=== PATIENT | male | born 1980 | race Caucasian/White ===

== ENCOUNTER 2018-06-02 17:28 | Inpatient (IN) | payer OTHER ==
--- NOTE | 2018-06-02 18:00 | PDOC ---
History of Present Illness - General Chief Complaint: Pain, Acute Stated Complaint: ABD PAIN Time Seen by Provider: 06/02/18 17:51 - History of Present Illness Initial Comments: 06/02/18 18:53 Perfecto Gore is an otherwise healthy 37yo man with a history of kidney stones who presents with acute onset of severe RLQ, right flank, and right back pain that started about 2-3 hours ago. He states that the pain is always present but comes in waves, and he describes it as a sharp or burning pain. He has had associated nausea and an episode of emesis. Mr Gore has not had any urinary symptoms associated but reports that he has not needed to urinate since the pain started. He cannot remember if the current pain is similar to his previous kidney stone. He took 800mg ibuprofen prior to arrival in the ED without improvement in his pain. Mr Gore reports that he has been healthy recently other than the current episode. ROS is completely negative aside from the current pain and vomiting. Past History - Past Medical History Allergies/Adverse Reactions: Allergies Allergy/AdvReac Type Severity Reaction Status Date / Time No Known Allergies Allergy Verified 06/02/18 17:36 Home Medications: Ambulatory Orders NK [No Known Home Medication] 06/02/18 COPD: No Kidney Stones: Yes - Suicide/Smoking/Psychosocial Hx Smoking History: Never smoked Review of Systems - Review of Systems Comments:: General: No fevers, no chills, no weight or appetite change, no malaise HEENT: No changes in vision, no changes in hearing, no congestion, no sore throat CV: No chest pain, no palpitations, no LE edema Pulm: No SOB, no cough, no wheezing GI: No nausea or vomiting, no change in bowel habits, no melena : No frequency, no urgency, no dysuria Musc: No back pain, no joint swelling, no recent injury Skin: No rash, no lesions, no erythema Endo: No excessive thirst, no heat/cold intolerance Heme: No unusual bruising or bleeding, no swollen glands Neuro: No syncope, no numbness/tingling, no focal weakness Vasc: No claudication Psych: No recent change in mood, no SI or HI *Physical Exam - Vital Signs Last Vital Signs Temp Pulse Resp BP Pulse Ox 66 18 141/84 99 06/02/18 17:33 06/02/18 17:33 06/02/18 17:33 06/02/18 17:33 - Physical Exam Comments: General: Uncomfortable, having difficulty laying still HEENT: PERRL, EOMI, MMM, voice normal, normal neck ROM, no LAD Cards: RRR, no murmur appreciated Pulm: Comfortable on room air, clear to auscultation bilaterally Abd: Soft, TTP on RLQ, R flank, R lateral back. : + Right CVA tenderness Ext: Atraumatic. No LE edema. ROM intact. Strength 5/5 and equal bilaterally Vasc: Extremities WWP. Palpable radial pulse bilaterally Neuro: A&Ox3, CN grossly intact, normal speech, motor/sensory grossly intact and symmetric Psych: Mood appropriate to situation ED Treatment Course - LABORATORY CBC & Chemistry Diagram: 06/02/18 18:36 06/02/18 18:36 Medical Decision Making - Medical Decision Making 06/02/18 18:56 Perfecto Wilson is a 37yo man with one previous episode of kidney stones who presents with acute onset of right sided abdominal, flank and lateral back pain. He is unable to remain still due to the pain and reports that it comes in waves. He has associated nausea and emesis. - Presentation and history are most consistent with a kidney stone - CBC, CMP, lipase, UA, urine culture pending - May obtain imaging depending on lab results - 4mg IV morphine, 4mg IV zofran, 30mg IV toradol for symptoms - Will reassess following administration of medications 06/02/18 19:36 - Labs pending - Pain significantly improved Signed out to Dr Childress. *DC/Admit/Observation/Transfer Diagnosis at time of Disposition: Right sided abdominal pain, Acute right flank pain - Referrals - Patient Instructions - Post Discharge Activity
[2018-06-02] MEDS ORDERED: morphine CARPU-JECT 2 MG/1 ML DISP.SYRIN IVPUSH ONE (18:19)
[2018-06-02] MEDS ORDERED: ONDANSETRON 4 MG/2 ML VIAL IVPUSH ONE (18:19)
[2018-06-02] MEDS ORDERED: SODIUM CHLORIDE 1,000 ML IV STA (18:20)
[2018-06-02] MEDS ORDERED: MORPHINE SULFATE 2 MG/ML VIAL ONE (18:32)
[2018-06-02] MEDS ORDERED: ONDANSETRON 4 MG/2 ML VIAL ONE (18:33)
[2018-06-02] MEDS ORDERED: KETOROLAC TROMETHAMINE 30 MG/1 ML VIAL IVPUSH ONE (18:46)
[2018-06-02 18:51] LABS: BASO % 0.3 % (0-2.0); EOS % 0.6 % (0-4.5); HEMATOCRIT 45.8 % (35.4-49); HEMOGLOBIN 15.8 GM/dL (11.7-16.9); LYMPH % 12.8 % (8-40); MCH 29.8 pg (25.7-33.7); MCHC 34.4 g/dl (32.0-35.9); MEAN CELL VOLUME 86.5 fl (80-96); MEAN PLT VOLUME 9.6 fl (7.5-11.1); MONO % 5.5 % (3.8-10.2); NEUT % 80.8 % (42.8-82.8); PLATELET COUNT 240 K/MM3 (134-434); RDW 12.8 % (11.9-15.9); WHITE BLOOD COUNT 13.1 K/mm3 (4.0-10.0)
[2018-06-02] MEDS ORDERED: KETOROLAC TROMETHAMINE 30 MG/1 ML VIAL ONE (18:55)
[2018-06-02 19:06] LABS: ALBUMIN 4.9 g/dl (3.4-5.0); ANION GAP 10 (8-16); BILIRUBIN,TOTAL 0.8 mg/dL (0.2-1.0); BLOOD UREA NITROGEN 23 mg/dL (7-18); CALCIUM 9.9 mg/dL (8.5-10.1); CHLORIDE 102 mmol/L (98-107); CO2 27 mmol/L (21-32); CREATININE 1.1 mg/dL (0.7-1.3); GLUCOSE,RANDOM 105 mg/dL (74-106); LIPASE 134 U/L (73-393); POTASSIUM 3.8 mmol/L (3.5-5.1); SGOT/AST 17 U/L (15-37); SGPT/ALT 29 U/L (12-78); SODIUM 139 mmol/L (136-145); TOT PROT 8.4 g/dl (6.4-8.2)
[2018-06-02 19:07] LABS: ALK PHOS 67 U/L (45-117)
--- NOTE | 2018-06-02 19:17 | PDOC ---
Attending Attestation - Resident Resident Name: Mayra Holder - ED Attending Attestation I have performed the following: I have examined & evaluated the patient, The case was reviewed & discussed with the resident, I agree w/resident's findings & plan - HPI HPI: 06/02/18 19:16 Pt has a hx of kidney stones. Now writhing with flank and side pain. - Physicial Exam PE: 06/02/18 19:16 Agree with resident exam - Medical Decision Making 06/02/18 19:17 labs; analgesics, imaging and hydration. 06/02/18 21:55 Patient Name: JET OBRIEN THIS IS A PRELIMINARY REPORT FROM IMAGING PHARMACY TECHNICIAN ASSISTANT DATE OF SERVICE: 2018-06-02 19:55:51 IMAGES: 475 EXAM: CT abdomen/pelvis without contrast HISTORY: Flank pain COMPARISON: None. FINDINGS: There is moderate right hydronephrosis. There is no obstructing 6 mm calculus noted in the proximal right ureter. There is associated right perinephric stranding and minimal right perinephric urinoma. 2 additional small nonobstructing left renal calculi are noted. There are no obvious gallstones. There is a moderate amount of stool noted in the colon. There is no evidence of intestinal obstruction. The appendix is normal in size. Urinary bladder is normal in dimension. There are no bladder calculi. Individualized dose optimization techniques were used for this CT. THIS DOCUMENT HAS BEEN ELECTRONICALLY SIGNED Triston Nye MD 06/02/18 22:19 Pt will be admitted for hisobstructing stone. Admit to med surg Hospitalist
--- NOTE | 2018-06-02 19:33 | PDOC ---
*Physical Exam - Vital Signs Last Vital Signs Temp Pulse Resp BP Pulse Ox 66 18 141/84 99 06/02/18 17:33 06/02/18 17:33 06/02/18 17:33 06/02/18 17:33 - Physical Exam Comments: 06/02/18 19:30 GENERAL: Awake, alert, and fully oriented, in no acute distress HEAD: No signs of trauma, normocephalic, atraumatic EYES: PERRLA, EOMI, sclera anicteric, conjunctiva clear ENT: Auricles normal inspection, hearing grossly normal, nares patent, oropharynx clear without exudates. Moist mucosa LUNGS: No distress, speaks full sentences, clear to auscultation bilaterally HEART: Regular rate and rhythm, normal S1 and S2, no murmurs, rubs or gallops, peripheral pulses normal and equal bilaterally. ABDOMEN: Soft, nontender, normoactive bowel sounds. No guarding, no rebound. No masses EXTREMITIES: Normal inspection, Normal range of motion, no edema. No clubbing or cyanosis. NEUROLOGICAL: Cranial nerves II through XII grossly intact. Normal speech, no focal sensorimotor deficits SKIN: Warm, Dry, normal turgor, no rashes or lesions noted. ED Treatment Course - LABORATORY CBC & Chemistry Diagram: 06/02/18 18:36 06/02/18 18:36 - ADDITIONAL ORDERS Additional order review: Laboratory Results 06/02/18 18:36 Sodium 139 Potassium 3.8 Chloride 102 Carbon Dioxide 27 Anion Gap 10 BUN 23 H Creatinine 1.1 Creat Clearance w eGFR > 60 Random Glucose 105 Calcium 9.9 Total Bilirubin 0.8 AST 17 ALT 29 Alkaline Phosphatase 67 Total Protein 8.4 H Albumin 4.9 Lipase 134 06/02/18 18:36 RBC 5.30 MCV 86.5 MCHC 34.4 RDW 12.8 MPV 9.6 Neutrophils % 80.8 Lymphocytes % 12.8 Monocytes % 5.5 Eosinophils % 0.6 Basophils % 0.3 - Medications Given in the ED: ED Medications Discontinued Medications Generic Name Dose Route Start Last Admin Trade Name Freq PRN Reason Stop Dose Admin Sodium Chloride 1,000 mls @ 1,000 mls/hr 06/02/18 18:20 06/02/18 18:52 Normal Saline - IV 06/02/18 19:19 1,000 mls/hr ASDIR STA Administration Ketorolac Tromethamine 30 mg 06/02/18 18:46 06/02/18 18:53 Toradol Injection - IVPUSH 06/02/18 18:47 30 mg ONCE ONE Administration Morphine Sulfate 2 mg 06/02/18 18:19 06/02/18 18:25 Morphine Injection - IVPUSH 06/02/18 18:20 2 mg ONCE ONE Administration Ondansetron HCl 4 mg 06/02/18 18:19 06/02/18 18:25 Zofran Injection IVPUSH 06/02/18 18:20 4 mg ONCE ONE Administration Medical Decision Making - Medical Decision Making 06/02/18 19:28 Received sign out from Dr Holder. Patient is 37M with history of kidney stones here with right sided flank/RLQ pain. Vital signs stable. Patient cannot get comfortable, moving in bed before medication administration. Suspect kidney stone. Labs drawn, urine pending, CT pending. Patient reassessed, pain currently under control after receiving toradol and morphine. 06/02/18 21:56 CT shows moderate hydronephrosis with urinoma and 6mm obstructing stone. Urology paged. 06/02/18 22:37 Urology paged 2nd time. 06/02/18 23:32 Urology paged third time. Signed out to medicine team via Dr Metcalf. Dr Alhaji Thomason will see patient in morning. *DC/Admit/Observation/Transfer Diagnosis at time of Disposition: Kidney stone on right side - Discharge Dispostion Condition at time of disposition: Stable Decision to Admit order: Yes - Referrals - Patient Instructions - Post Discharge Activity
[2018-06-02 19:37] LABS: URINE APPEARANCE CLEAR; URINE BILIRUBIN NEGATIVE (<2.0 mg/dL); URINE COLOR LTYELLOW; URINE GLUCOSE (UA) NEGATIVE (NEGATIVE); URINE KETONE TRACE (NEGATIVE); URINE LEUK ESTERASE NEGATIVE (NEGATIVE); URINE NITRITE NEGATIVE (NEGATIVE); URINE PROTEIN NEGATIVE (NEGATIVE); URINE UROBILINOGEN NEGATIVE mg/dL (0.2-1.0)
[2018-06-02] MEDS ORDERED: TAMSULOSIN HCL 0.4 MG CAP.ER.24H (FP) PO ONE (20:45)
[2018-06-02] MEDS ORDERED: TAMSULOSIN HCL 0.4 MG CAP.ER.24H (FP) ONE (21:17)
[2018-06-02] MEDS ORDERED: morphine CARPU-JECT 4 MG/1 ML DISP.SYRIN IVPUSH ONE (21:45)
[2018-06-02] MEDS ORDERED: morphine SULFATE 4 MG/ML VIAL ONE (22:46)
[2018-06-02] MEDS ORDERED: SODIUM CHLORIDE 1,000 ML IV SCH (23:45)
[2018-06-02] MEDS ORDERED: ACETAMINOPHEN 325 MG TABLET (FP) PO PRN (23:57)
[2018-06-02] MEDS ORDERED: MORPHINE SULFATE 2 MG/ML VIAL IVPUSH PRN (23:57)
--- NOTE | 2018-06-03 00:32 | HP ---
CHIEF COMPLAINT: PCP: HISTORY OF PRESENT ILLNESS: 37yo M w/ PMH of kidney stones x2 who p/w acute onset of severe 10/10 RLQ, right flank, and right back pain that started about 2-3 hours ago. He states that the pain is always present but comes in waves, and he describes it as a sharp or burning pain. He has had today associated nausea and an episode of non- bloody emesis. Pt says the pain is similar to when he had his prior kidney stones, 20 years ago and 3 years ago both of which passed on their own, but this time is the worst. He took 400mg ibuprofen prior to arrival in the ED without improvement in his pain. He has been drinking and peeing but has not eaten since breakfast. Denies any fever, chills, dysuria, hematuria, CP, SOB, diarrhea, blood in stool Of note pt endorses eating more meat in his diet in the past 3-4 wks. Usually eats meat 1-2x/wk now has been having 3-4x/wk. Also pt takes multivitamin centrum ER course was notable for: (1)toradol 30mg, fluids, flomax .4mg, zofran, Morphine (2,4) 6mg IV (2)Uro consult (3) Recent Travel: PAST MEDICAL HISTORY: kidney stones; 20 years ago and 3 years ago. Both passed on their own PAST SURGICAL HISTORY: Social History: Smoking: denies Alcohol: occasional Drugs: denies Living here on a visa since 2014 Family History: none Allergies No Known Allergies Allergy (Verified 06/02/18 17:36) HOME MEDICATIONS: multivitamin/centrum Home Medications Medication Instructions Recorded NK [No Known Home Medication] 06/02/18 REVIEW OF SYSTEMS reviewed in hpi PHYSICAL EXAMINATION Vital Signs - 24 hr 06/02/18 17:33 Pulse Rate 66 Respiratory 18 Rate Blood Pressure 141/84 O2 Sat by Pulse 99 Oximetry (%) GENERAL: Awake, alert, and fully oriented, in mild acute distress. HEENT: NCAT. sclera anicteric, conjunctiva clear. No lid lag. oropharynx clear without exudates. MMM. NECK: Normal ROM, supple without lymphadenopathy, JVD, or masses. LUNGS: CTAB. No wheezes, and no crackles. No accessory muscle use. HEART: RRR, normal S1 and S2 without murmur, rub or gallop. ABDOMEN: TTP RLQ Soft, ND +BS no guarding, no rebound, no masses. No hepatomegaly or splenomegaly. MUSCULOSKELETAL: Normal range of motion at all joints. No bony deformities or tenderness. R CVA tenderness. UPPER EXTREMITIES: 2+ pulses, warm, well-perfused. No cyanosis. No clubbing. No peripheral edema. LOWER EXTREMITIES: 2+ pulses, warm, well-perfused. No calf tenderness. No peripheral edema. NEUROLOGICAL: Cranial nerves II-XII intact. Normal speech. SKIN: Warm, dry, normal turgor, no rashes or lesions noted, normal capillary refill. Laboratory Results - last 24 hr 06/02/18 06/02/18 06/02/18 18:36 18:36 19:26 WBC 13.1 H RBC 5.30 Hgb 15.8 Hct 45.8 MCV 86.5 MCH 29.8 MCHC 34.4 RDW 12.8 Plt Count 240 MPV 9.6 Absolute Neuts (auto) 10.6 Neutrophils % 80.8 Lymphocytes % 12.8 Monocytes % 5.5 Eosinophils % 0.6 Basophils % 0.3 Nucleated RBC % 0 Sodium 139 Potassium 3.8 Chloride 102 Carbon Dioxide 27 Anion Gap 10 BUN 23 H Creatinine 1.1 Creat Clearance w eGFR > 60 Random Glucose 105 Calcium 9.9 Total Bilirubin 0.8 AST 17 ALT 29 Alkaline Phosphatase 67 Total Protein 8.4 H Albumin 4.9 Lipase 134 Urine Color Ltyellow Urine Appearance Clear Urine pH 7.0 Ur Specific Mitchell 1.015 Urine Protein Negative Urine Glucose (UA) Negative Urine Ketones Trace H Urine Blood Negative Urine Nitrite Negative Urine Bilirubin Negative Urine Urobilinogen Negative Ur Leukocyte Esterase Negative ASSESSMENT/PLAN: 37yo M w/ PMH of kidney stones x2 who p/w acute onset of severe 10/10 RLQ, right flank, and right back pain that started about 2-3 hours ago. Obstructive nephrolithiasis - Unclear etiology although pt recent increase in meat consumption may be a contributing factor for Ca oxalate stones. Pt has leukocytosis and PE is sig for TTP RLQ w/ R CVA tenderness. CT shows moderate R hydronephrosis w/ obstructing 6 mm calculus in proximal right ureter and R perinephric stranding. -preop/morning labs -Uro consult, Dr. Evangelista -IV NS 125cc/hr -Flomax 0.4mg BID -morphine 4mg IV q4h prn 7-10 -morphine 2mg IV q4h prn 4-6 -tylenol 650mg PO q4 prn 1-5 -PTH, r/o primary parathyroid as possible cause for recurrent stones -NPO LATA - 2/2 obstruction. BUN/Cr 23/1.1 -IV NS 125cc/hr -monitor BMP -uro consult #FEN -IV NS 125cc/hr -replete lytes as needed -NPO #DVTppx SQH 5000u tid #Dispo -admit to [facility] -Full code case discussed with attending, Dr. Nirmala Mchugh MD PGY1 Visit type - Emergency Visit Emergency Visit: Yes ED Registration Date: 06/02/18 Care time: The patient presented to the Emergency Department on the above date and was hospitalized for further evaluation of their emergent condition. - New Patient This patient is new to me today: Yes Date on this admission: 06/03/18 - Critical Care Critical Care patient: No Hospitalist Screening - Colonoscopy Questionnaire Colonoscopy Questionnaire: Colonoscopy Questionnaire - Patient: 50 - 75 years old and never had a screening colonoscopy: Unknown History of colon or rectal polyps, or CA: Unknown History of IBD, Crohn's disease or UC: Unknown History of abdominal radiation therapy as a child: Unknown - Relative: 1 with colon or rectal CA, or polyps at age 60 or younger: Unknown Colon or rectal CA diagnosed at age 45 or younger: Unknown Multiple relatives with colon or rectal CA: Unknown - Outcome: Screening Result: Negative Screen
[2018-06-03] MEDS ORDERED: morphine SULFATE 4 MG/ML VIAL IVPUSH PRN (00:49)
[2018-06-03] MEDS ORDERED: MORPHINE SULFATE 2 MG/ML VIAL IVPUSH PRN (00:50)
[2018-06-03] MEDS: HEPARIN NA (PORCINE) 5,000 UNITS/ML 1ML VIAL SQ SCH ×3 (01:00→14:22)
[2018-06-03] MEDS ORDERED: HEPARIN NA (PORCINE) 5,000 UNITS/ML 1ML VIAL ONE (01:09)
--- NOTE | 2018-06-03 04:35 | PN ---
Teaching Attending Note Name of Resident: Ted Mchugh ATTENDING PHYSICIAN STATEMENT I saw and evaluated the patient. I reviewed the resident's note and discussed the case with the resident. I agree with the resident's findings and plan as documented. SUBJECTIVE: OBJECTIVE: ASSESSMENT AND PLAN: this is a 37yo M w/ PMH of kidney stones x2 who p/w acute onset of severe 10/10 RLQ, right flank, and right back pain that started about 2-3 hours ago. patient was admitted for an acute renal colic with obstruction plan: admit for management of obstruc nephrolithaisis pain management start tamsulosin consult urology pain management
[2018-06-03 05:15] VITALS: BMI 26.4
[2018-06-03 07:19] LABS: BASO % 0.4 % (0-2.0); EOS % 0.6 % (0-4.5); HEMATOCRIT 40.7 % (35.4-49); HEMOGLOBIN 14.2 GM/dL (11.7-16.9); LYMPH % 13.5 % (8-40); MCH 30.4 pg (25.7-33.7); MCHC 34.9 g/dl (32.0-35.9); MEAN CELL VOLUME 87.2 fl (80-96); MEAN PLT VOLUME 8.6 fl (7.5-11.1); MONO % 8.6 % (3.8-10.2); NEUT % 76.9 % (42.8-82.8); PLATELET COUNT 175 K/MM3 (134-434); RBC 4.67 M/mm3 (4.00-5.60); RDW 12.6 % (11.9-15.9); WHITE BLOOD COUNT 10.5 K/mm3 (4.0-10.0)
[2018-06-03 07:55] LABS: INR 1.07 (0.82-1.09); PROTHROMBIN TIME (PATIENT) 12.1 SEC (9.7-13.0)
[2018-06-03 07:57] LABS: ALBUMIN 3.3 g/dl (3.4-5.0); ANION GAP 5 (8-16); BLOOD UREA NITROGEN 17 mg/dL (7-18); CALCIUM 8.3 mg/dL (8.5-10.1); CHLORIDE 105 mmol/L (98-107); CO2 28 mmol/L (21-32); GLUCOSE,RANDOM 98 mg/dL (74-106); MAGNESIUM 1.9 mg/dL (1.8-2.4); POTASSIUM 4.1 mmol/L (3.5-5.1); SODIUM 138 mmol/L (136-145)
[2018-06-03 08:01] LABS: ALK PHOS 51 U/L (45-117); BILIRUBIN,TOTAL 0.8 mg/dL (0.2-1.0); CREATININE 1.2 mg/dL (0.7-1.3); PHOSPHOROUS 3.8 mg/dL (2.5-4.9); SGOT/AST 17 U/L (15-37); SGPT/ALT 24 U/L (12-78); TOT PROT 5.9 g/dl (6.4-8.2)
[2018-06-03] MEDS ORDERED: TAMSULOSIN HCL 0.4 MG CAP.ER.24H (FP) PO SCH (08:30)
--- NOTE | 2018-06-03 10:11 | EKG ---
Test Reason : Blood Pressure : / mmHG Vent. Rate : 058 BPM Atrial Rate : 058 BPM P-R Int : 148 ms QRS Dur : 098 ms QT Int : 426 ms P-R-T Axes : 032 066 048 degrees QTc Int : 418 ms SINUS BRADYCARDIA OTHERWISE NORMAL ECG NO PREVIOUS ECGS AVAILABLE Confirmed by SHASTA CAPUTO MD ([id number]) on 06/03/2018 10:10:58 AM Referred By: Confirmed By:SHASTA CAPUTO MD
[2018-06-03] MEDS ORDERED: LIDOCAINE HCL/PF 2% SDV 5ML VIAL ONE (10:33)
[2018-06-03] MEDS ORDERED: PROPOFOL 20 ML ONE (10:34)
[2018-06-03] MEDS ORDERED: MIDAZOLAM HCL 2 MG/2 ML SINGLE DOSE VIAL ONE (10:34)
[2018-06-03] MEDS ORDERED: DEXAMETHASONE SOD PHOSPHATE 4 MG/1 ML VIAL ONE (11:09)
--- NOTE | 2018-06-03 11:52 | OP ---
Operative Note - Note: Operative Date: 06/03/18 Pre-Operative Diagnosis: right hydroureteronephrosis with ureteral stone Operation: cystoscopy/right ureteroscopy with ureteral dilation/urethral dilation/righ retrograde pyelogram/right ureteral stent placement Findings: 6+ mid ureteral obstructing stone with grade 4/5 proximal hydroureteronephrosis Post-Operative Diagnosis: Same as Pre-op Surgeon: Francois Evangelista Anesthesia: General Drains & Tubes with Location: 04/28 right ureteral stent Operative Report Dictated: Yes
[2018-06-03] MEDS ORDERED: ONDANSETRON 4 MG/2 ML VIAL IVPUSH PRN (11:53)
[2018-06-03] MEDS ORDERED: LACTATED RINGERS SOLUTION 1,000 ML IV SCH (12:00)
--- NOTE | 2018-06-03 12:07 | CONSULT ---
Consult - text type - Consultation Consultation Note: cc right hydronephrosis with severe renal colic hpi: patient with history of right hydroureteronephrosis with pernephric stranding and acute renal insufficiency. The patient is in severe distress and unable to maintain a diet. The patient is extremely nauseous. PE afeb severe right CVAT present imp right hydro with ureteral stone extreme distress acute renal insufficiency plan patient is emergently taken to the OR for decompression of obsructed right kidney 20 minutes spent with consultation
[2018-06-03] MEDS ORDERED: KETOROLAC TROMETHAMINE 30 MG/1 ML VIAL IVPUSH PRN (14:02)
[2018-06-03 14:40] VITALS: BP 125/88; PULSE 64; TEMP 97.5
--- NOTE | 2018-06-03 16:07 | DS ---
Physical Exam: SUBJECTIVE: Patient seen and examined this morning at bedside. Patient said he has asked for pain meds >5 times overnight. Patient reports one episode of vomiting over night. No other acute events over night. Denies fevers, chills, chest pain, SOB, hematuria. Patient was scheduled for surgery today with Dr. Evangelista. PostOp, his pain has improved and he was able to urinate. OBJECTIVE: Vital Signs Period Temp Pulse Resp BP Sys/[place] Pulse Ox Last 24 Hr 96.8 F-98.3 F 64-78 -18 117-141/70-88 95-99 PHYSICAL EXAM GENERAL: The patient is awake, alert, and fully oriented, in no acute distress. LUNGS: Breath sounds equal, clear to auscultation bilaterally, no wheezes, no crackles HEART: Regular rate and rhythm, S1, S2 without murmur, rub or gallop. ABDOMEN: Soft, Tender to palpaption in RLQ, nondistended, normoactive bowel sounds BACK: Right CVA Tenderness, +Lloyds punch EXTREMITIES: No edema LABS Laboratory Results - last 24 hr 06/02/18 06/02/18 06/02/18 18:36 18:36 19:26 WBC 13.1 H RBC 5.30 Hgb 15.8 Hct 45.8 MCV 86.5 MCH 29.8 MCHC 34.4 RDW 12.8 Plt Count 240 MPV 9.6 Absolute Neuts (auto) 10.6 Neutrophils % 80.8 Lymphocytes % 12.8 Monocytes % 5.5 Eosinophils % 0.6 Basophils % 0.3 Nucleated RBC % 0 PT with INR INR PTT (Actin FS) Sodium 139 Potassium 3.8 Chloride 102 Carbon Dioxide 27 Anion Gap 10 BUN 23 H Creatinine 1.1 Creat Clearance w eGFR > 60 Random Glucose 105 Calcium 9.9 Phosphorus Magnesium Total Bilirubin 0.8 AST 17 ALT 29 Alkaline Phosphatase 67 Total Protein 8.4 H Albumin 4.9 Lipase 134 Urine Color Ltyellow Urine Appearance Clear Urine pH 7.0 Ur Specific Williams 1.015 Urine Protein Negative Urine Glucose (UA) Negative Urine Ketones Trace H Urine Blood Negative Urine Nitrite Negative Urine Bilirubin Negative Urine Urobilinogen Negative Ur Leukocyte Esterase Negative Blood Type Antibody Screen 06/03/18 06/03/18 06/03/18 06:50 06:50 06:50 WBC 10.5 H RBC 4.67 Hgb 14.2 Hct 40.7 MCV 87.2 MCH 30.4 MCHC 34.9 RDW 12.6 Plt Count 175 D MPV 8.6 D Absolute Neuts (auto) 8.1 Neutrophils % 76.9 Lymphocytes % 13.5 Monocytes % 8.6 Eosinophils % 0.6 Basophils % 0.4 Nucleated RBC % 0 PT with INR 12.10 INR 1.07 PTT (Actin FS) 28.0 Sodium 138 Potassium 4.1 Chloride 105 Carbon Dioxide 28 Anion Gap 5 L BUN 17 Creatinine 1.2 Creat Clearance w eGFR > 60 Random Glucose 98 Calcium 8.3 L Phosphorus 3.8 Magnesium 1.9 Total Bilirubin 0.8 AST 17 ALT 24 Alkaline Phosphatase 51 D Total Protein 5.9 L D Albumin 3.3 L Lipase Urine Color Urine Appearance Urine pH Ur Specific Williams Urine Protein Urine Glucose (UA) Urine Ketones Urine Blood Urine Nitrite Urine Bilirubin Urine Urobilinogen Ur Leukocyte Esterase Blood Type Antibody Screen 06/03/18 06/03/18 06:50 09:40 WBC RBC Hgb Hct MCV MCH MCHC RDW Plt Count MPV Absolute Neuts (auto) Neutrophils % Lymphocytes % Monocytes % Eosinophils % Basophils % Nucleated RBC % PT with INR INR PTT (Actin FS) Sodium Potassium Chloride Carbon Dioxide Anion Gap BUN Creatinine Creat Clearance w eGFR Random Glucose Calcium Phosphorus Magnesium Total Bilirubin AST ALT Alkaline Phosphatase Total Protein Albumin Lipase Urine Color Urine Appearance Urine pH Ur Specific Williams Urine Protein Urine Glucose (UA) Urine Ketones Urine Blood Urine Nitrite Urine Bilirubin Urine Urobilinogen Ur Leukocyte Esterase Blood Type A POSITIVE A POSITIVE Antibody Screen Negative IMAGING: - CT Abdomen: Right hydronephrosis with renal swelling and perirenal stranding. Hydroureter to a proximal 4.5 mm proximal ureteral calculus. Left intrarenal calculi. HOSPITAL COURSE: Date of Admission:06/02/18 Date of Discharge: 06/03/18 Prehospital course as per Dr. Ted Mchugh 37yo M w/ PMH of kidney stones x2 who p/w acute onset of severe 10/10 RLQ, right flank, and right back pain that started about 2-3 hours ago. He states that the pain is always present but comes in waves, and he describes it as a sharp or burning pain. He has had today associated nausea and an episode of non- bloody emesis. Pt says the pain is similar to when he had his prior kidney stones, 20 years ago and 3 years ago both of which passed on their own, but this time is the worst. He took 400mg ibuprofen prior to arrival in the ED without improvement in his pain. He has been drinking and peeing but has not eaten since breakfast. Denies any fever, chills, dysuria, hematuria, CP, SOB, diarrhea, blood in stool. Of note pt endorses eating more meat in his diet in the past 3-4 wks. Usually eats meat 1-2x/wk now has been having 3-4x/wk. Also pt takes multivitamin centrum. ER course was notable for toradol 30mg, fluids, flomax .4mg, zofran, Morphine (2,4) 6mg IV, Uro consult Hospital Course Patient was admitted for Obstructive nephrolithiasis. A CT Scan was done and Urology was consulted. Pain was controlled with Tylenol and Morphine. Patient was emergently taken to the OR for decompression of the Right kidney and right ureteral stent placement. Additionally patient presented with an LATA likely due to the obstruction. PostOp, his pain improved to 3/10 and he was able to pass urine. He did experience some hematuria however. He was counseled on the importance of staying well hydrated. Patient was discharged same day with follow up scheduled in Dr. Evangelista's office. Minutes to complete discharge: 40 Discharge Summary Reason For Visit: CALCULUS OF KIDNEY Condition: Stable - Instructions Diet, Activity, Other Instructions: You presented to the hospital with severe pain due to a kidney stone. You may have blood in your urine as this is normal after the procedure. This should clear over the next few days. A procedure was done where a stent was placed in your Right kidney. You were treated with pain medications. Take motrin as needed for pain. Do Not exceed more than 3200mg in a day. It is very important to drink as much water as possible. Follow up with your primary care doctor in 1 week. Discuss with him about doing a workup to determine the cause of your stones. Your kidney was also swollen due to the blockage. discuss with them about repeating an ultrasound of your kidney to see that this has resolved. Follow up with Dr. Evangelista in his office within one week. Please call him at [phone] to schedule an appointment. If you have any worrisome symptoms including severe pain, fevers, chest pain or shortness of breath or if your symptoms worsen, please return to ED as soon as possible. Referrals: Francois Evangelista MD [Staff Physician] - 06/07/18 1:45 pm Disposition: HOME - Home Medications Comprehensive Discharge Medication List: Ambulatory Orders NK [No Known Home Medication] 06/02/18 This patient is new to me today: Yes Date on this admission: 06/04/18 Emergency Visit: Yes ED Registration Date: 06/02/18 Care time: The patient presented to the Emergency Department on the above date and was hospitalized for further evaluation of their emergent condition. Critical Care patient: No - Discharge Referral Referred to [facility] Med [facility] No
--- NOTE | 2018-06-03 17:09 | PN ---
Teaching Attending Note Name of Resident: Monica Richey ATTENDING PHYSICIAN STATEMENT I saw and evaluated the patient. I reviewed the resident's note and discussed the case with the resident. I agree with the resident's findings and plan as documented. SUBJECTIVE:states pain has improved significantly since the procedure. some mild hematuria since the procedure. Denies CP, SOB< fever, chills, N/V/C/D OBJECTIVE: Last Vital Signs Temp Pulse Resp BP Pulse Ox 97.5 F L 64 18 125/88 99 06/03/18 14:39 06/03/18 14:39 06/03/18 14:39 06/03/18 14:39 06/03/18 12:30 General NAD ASSESSMENT AND PLAN: 37yo M with PMH nephrolithasis x2 both times passsed on its own presenting with R flank pain and nausea 1. R nephrolithais with obstructing stone- assoc with R hydronephrosis. s/p cystoscopy with R uretersoscopy with dilation with stent placement. stone was not removed. pain controlled with toradol. d/c home with urology appt on 06/07. encouraged po intake of water and ibuprofen for pain. has not had workup for kidney stones in the past. would benefit from a workup as outpatient. advised pt to avoid red meats and soda. f/u wtih PMD for repeat renal u/s to show resolution of hydroneprhosis once stone is removed. spoke with patient in detail. all questions answered. verbalized understanding and agreement
--- NOTE | 2018-06-03 19:09 | OP ---
DATE OF OPERATION: 06/03/2018 PREOPERATIVE DIAGNOSIS: Right hydroureteronephrosis with right ureteral stone. POSTOPERATIVE DIAGNOSIS: Right hydroureteronephrosis with right ureteral stone. PROCEDURE: Cystoscopy, urethral dilation, right ureteral dilation, right retrograde pyelogram, right ureteroscopy with stone manipulation, and right ureteral stent placement. ATTENDING: Francois Thomason MD ANESTHESIA: General. DESCRIPTION OF OPERATION: The patient was consulted the night before for an obstructing right stone with high-grade hydroureteronephrosis with extravasation of urine around the kidney. The patient was seen in the morning, and the patient was in significant distress, unable to maintain a diet. The patient's renal function was less than his baseline, indicating acute renal injury in progress. The patient is emergently taken to the operating room for an ureteroscopy and stent with possible removal of the stone. The patient understands all risks and benefits. The patient is brought in the operating room, placed in supine position on the operating room table. Anesthesia and preoperative antibiotics are administered. At this point, the patient is placed in the dorsal lithotomy position and prepped and draped in the usual sterile manner. Cystoscopy is attempted. However, a distal urethral stricture is noted. Dilation with straight Seldinger is performed to 26 Polish. At this point, cystoscopy is performed, and the bladder entered. The right ureteral orifice is completely within normal limits without evidence of any trauma consistent with stone passage. A retrograde pyelogram is then performed, and a high-grade mid-ureteral obstruction is noted with a grade 4 or 5 hydroureteronephrosis. At this point, a wire is passed proximally. Ureteroscopy is taken to the level of the mid ureter. At this point, the ureteral stricture most likely at the site of the impacted right ureteral stone which appeared on retrograde to be greater than 6 mm. The size was between 7 and 8 mm. The ureteroscope could not pass by this obstruction. A ureteral dilator was then utilized up to this point under fluoroscopic guidance. Ureteroscopy was then performed again, and the stone was seen. With the back-pressure of the water, the stone migrated proximally. There was significant debris which led to poor visualization. Flexible ureteroscopy was then performed with a second wire passed into the kidney. Utilizing the second wire, the flexible ureteroscope was placed over the wire. Utilizing Seldinger technique, another wire was left in place as a safety wire. Because of the poor visualization within the kidney, the stone could not be identified. Laser lithotripsy could not be performed. It was decided to leave the patient with a stent with a string attached. This was accomplished under cystoscopic visualization utilizing the Seldinger technique. No complications were noted. There was adequate decompression of the right kidney. The patient tolerated the procedure very well. The disposition of the patient was to the recovery room. Luba [id number]
== END 2018-06-03 15:58 | disposition home or self-care (01) | DRG 465 ==
LOC: JER 17:28 → JERBED 23:08 → J6S 06-03 03:34
PROVIDERS: ADMIT Internal Medicine; ATTEND Internal Medicine
PROC: 0T768DZ Dilation of Right Ureter with Intraluminal Device, Via Natural or Artificial Opening Endoscopic (ICD-10-PCS; principal; 2018-06-03 10:15)
PROC: BT1DZZZ Fluoroscopy of Right Kidney, Ureter and Bladder (ICD-10-PCS; 2018-06-03 10:15)
DX: N13.2 Hydronephrosis with renal and ureteral calculous obstruction (principal); N17.9 Acute kidney failure, unspecified
CPT/HCPCS: 36415; 74176; 76000-TC-FY; 80053; 81003; 83690; 83735; 83970; 84100; 85025; 85610; 85730; 86850; 86900; 86901; 87086; 93005; 93010; 94760; 99283-25; J1644; J7030

== ENCOUNTER 2018-06-06 15:47 | Inpatient (IN) | payer OTHER ==
--- NOTE | 2018-06-06 15:59 | PDOC ---
Rapid Medical Evaluation Time Seen by Provider: 06/06/18 15:57 Medical Evaluation: Allergies Allergy/AdvReac Type Severity Reaction Status Date / Time No Known Allergies Allergy Verified 06/02/18 17:36 I have performed a brief in-person evaluation of this patient. The patient presents with a chief complaint of: continued pain after kidney stent placed on 06/05. Patient is convinced Dr. Alhaji Thomason cut off a piece of his kidney during the procedure and his right kidney is now damaged. He states he wants more testing because the surgeon did a "bad procedure" Pertinent physical exam findings: none I have ordered the following: urinalysis, labs, kidney ultrasound The patient will proceed to the ED for further evaluation. Discharge Disposition - Diagnosis Kidney stone - Referrals - Patient Instructions - Post Discharge Activity
[2018-06-06 16:08] VITALS: BMI 25.0
[2018-06-06] MEDS ORDERED: ACETAMINOPHEN 1000 MG/100 ML VIAL (NON FORMULARY) IVPB ONE ×2 (16:25→22:36)
--- NOTE | 2018-06-06 16:31 | PDOC ---
History of Present Illness - General History Source: Patient Exam Limitations: No Limitations - History of Present Illness Initial Comments: 06/06/18 16:26 This is a 37 YOM with h/o kidney stones (admitted here to [facility] from 06/02-06/05/18 for 6+ mm right obstructing ureteral stone with grade 4/5 right hydroureteronephrosis) who p/w continued right flank pain since having a cystoscopy/right ureteroscopy with ureteral dilation/urethral dilation/right retrograde pyelogram/right ureteral stent placement with Dr. Evangelista on . He additionally notes only being able to urinate a small amount at a time, and passing blood clots. His pain level is currently at 2/10 but it is constant and nagging, in the right flank radiating to the RUQ. He expresses frustration at the continued pain and states he believes something must have gone wrong with the procedure. He notes subjective fever, but denies chills, n/v/d/c, burning on urination, testicular pain or swelling, or other symptoms. He has been taking ibuprofen for pain without relief. <Mejia,Sonia - Last Filed: 06/07/18 21:28> <Marion Navarro - Last Filed: 06/11/18 07:05> - General Chief Complaint: Pain, Acute Stated Complaint: REVISIT/ POST-OP COMPLICATIONS Time Seen by Provider: 06/06/18 15:57 Past History - Past Medical History COPD: No DVT: No Kidney Stones: Yes Other medical history: kidney stones - Immunization History Immunization Up to Date: Yes - Suicide/Smoking/Psychosocial Hx Smoking History: Never smoked Information on smoking cessation initiated: No Hx Alcohol Use: No Drug/Substance Use Hx: No Substance Use Type: None <Mejia,Sonia - Last Filed: 06/07/18 21:28> <Marion Navarro - Last Filed: 06/11/18 07:05> - Past Medical History Allergies/Adverse Reactions: Allergies Allergy/AdvReac Type Severity Reaction Status Date / Time No Known Allergies Allergy Verified 06/06/18 16:00 Home Medications: Ambulatory Orders Sulfamethoxazole/Trimethoprim [Bactrim DS -] 1 each PO BID 7 Days #14 tablet 01/20 Review of Systems - Review of Systems Able to Perform ROS?: Yes Constitutional: Yes: Fever (subjective). No: Unexplained wgt Loss HEENTM: No: Nose Congestion, Throat Pain Respiratory: No: Cough, Shortness of Breath Cardiac (ROS): No: Chest Pain, Palpitations ABD/GI: Yes: Other (right flank pain, right abdominal pain). No: Constipated, Diarrhea, Nausea, Vomiting : No: Burning, Dysuria Musculoskeletal: Yes: Back Pain (right flank). No: Neck Pain Integumentary: No: Bruising, Rash Neurological: No: Headache, Numbness, Tingling, Weakness, Dizziness Endocrine: No: Unexplained Weight Gain, Unexplained Weight Loss <Sonia Mejia - Last Filed: 06/07/18 21:28> *Physical Exam - Vital Signs Last Vital Signs Temp Pulse Resp BP Pulse Ox 98.6 F 74 16 153/103 100 06/06/18 16:01 06/06/18 16:01 06/06/18 16:01 06/06/18 16:01 06/06/18 16:01 - Physical Exam General Appearance: Yes: Nourished, Appropriately Dressed, Mild Distress, Other (frustrated appearing adult male who appears comfortable, answering questions appropriately) HEENT: positive: EOMI, Normal Voice, Hearing Grossly Normal. negative: Scleral Icterus (R), Scleral Icterus (L), Nasal Congestion Neck: positive: Trachea midline, Supple. negative: Tender, Rigid Respiratory/Chest: positive: Lungs Clear, Normal Breath Sounds. negative: Respiratory Distress, Crackles, Rhonchi, Stridor, Wheezing Cardiovascular: positive: Regular Rhythm, Regular Rate. negative: Murmur Gastrointestinal/Abdominal: positive: Normal Bowel Sounds, Soft. negative: Tender, Organomegaly, Pulsatile Mass, Guarding Musculoskeletal: positive: Normal Inspection. negative: Decreased Range of Motion, Vertebral Tenderness Extremity: positive: Normal Capillary Refill, Normal Inspection, Normal Range of Motion. negative: Tender, Cyanosis Integumentary: positive: Normal Color, Dry, Warm. negative: Erythema, Rash, Bruising Neurologic: positive: conceptor II-XII NML intact, Fully Oriented, Alert, Normal Mood/ Affect, Normal Response, Motor Strength 5/5 <Sonia Mejia - Last Filed: 06/07/18 21:28> - Vital Signs Last Vital Signs Temp Pulse Resp BP Pulse Ox 98.6 F 74 16 153/103 100 06/06/18 16:01 06/06/18 16:01 06/06/18 16:01 06/06/18 16:01 06/06/18 16:01 <Marion Navarro - Last Filed: 06/11/18 07:05> Procedures - Bedside Ultrasound Remarks: 06/06/18 22:03 POCUS renal exam: Personnel Records Clerk: Melanie Slaughter Attending physician: Melanie Views: right kidney, left kidney, bladder Findings: [x] Right moderate hydronephrosis. [x] bladder: ureteral stent visualized [x] urinary jets: not assessed. Impression: Right moderate hydronephrosis. +ureteral stent visualized in bladder. confirmatory study: CT spiral abdomen 06/06/18 22:04 <Marion Navarro - Last Filed: 06/11/18 07:05> ED Treatment Course - LABORATORY CBC & Chemistry Diagram: 06/07/18 07:26 06/07/18 07:26 <Sonia Mejia - Last Filed: 06/07/18 21:28> - LABORATORY CBC & Chemistry Diagram: 06/07/18 07:26 06/07/18 07:26 - ADDITIONAL ORDERS Additional order review: Laboratory Results 06/06/18 06/06/18 20:08 17:39 Sodium 140 Potassium 4.2 Chloride 103 Carbon Dioxide 30 Anion Gap 7 L BUN 14 Creatinine 1.1 Creat Clearance w eGFR > 60 Random Glucose 84 Calcium 9.2 Total Bilirubin 0.6 AST 17 ALT 21 Alkaline Phosphatase 56 Total Protein 6.7 Albumin 3.7 Urine Color Red Urine Appearance Cloudy Urine pH 6.0 Ur Specific [place] 1.009 Urine Protein 2+ H Urine Glucose (UA) Negative Urine Ketones 1+ H Urine Blood 3+ H Urine Nitrite Negative Urine Bilirubin Negative Urine Urobilinogen Negative Ur Leukocyte Esterase 2+ H Urine WBC (Auto) 688 Urine RBC (Auto) 476 Urine Bacteria Rare 06/06/18 17:39 RBC 4.82 MCV 88.2 MCHC 33.7 RDW 12.8 MPV 8.7 Neutrophils % 65.1 Lymphocytes % 20.2 D Monocytes % 12.2 H Eosinophils % 1.9 D Basophils % 0.6 - Medications Given in the ED: ED Medications Discontinued Medications Generic Name Dose Route Start Last Admin Trade Name Freq PRN Reason Stop Dose Admin Acetaminophen 1,000 mg 06/06/18 16:25 06/06/18 17:49 Ofirmev Injection - IVPB 06/06/18 16:26 Not Given ONCE ONE Ketorolac Tromethamine 10 mg 06/06/18 17:09 06/06/18 17:24 Toradol Injection - IVPUSH 06/06/18 17:10 10 mg ONCE ONE Administration Morphine Sulfate 4 mg 06/06/18 17:09 06/06/18 17:25 Morphine Injection - IVPUSH 06/06/18 17:10 4 mg ONCE ONE Administration Morphine Sulfate 4 mg 06/06/18 17:31 06/06/18 17:48 Morphine Injection - IVPUSH 06/06/18 17:32 4 mg ONCE ONE Administration <Marion Navarro - Last Filed: 06/11/18 07:05> Medical Decision Making - Medical Decision Making Pt p/w severe flank pain. Initial Vital Signs Temp Pulse Resp BP Pulse Ox 98.6 F 74 16 153/103 100 06/06/18 16:01 06/06/18 16:01 06/06/18 16:01 06/06/18 16:01 06/06/18 16:01 Exam: As noted in Physical Exam section. DDX IBNLT: renal colic, obstructive uropathy, UTI/pyelonephritis, rental artery aneurysm or dissection (jose eduardo w/ hematuria and no stone visualized on imaging), ACS, AAA/AD, pneumothorax, PE, cholecystitis, cholangitis, pancreatitis, gastritis, PUD, colitis, ruptured diverticulosis, diverticulitis wwo abscess or perforation, appendicitis, hernia, SBO, malignancy, splenic infarction, mesenteric ischemia, bowel perforation, testicular torsion, epididymitis, orchitis, urethritis, musculoskeletal, constipation, etc. W/U ordered: CBCD CMP Mg Phos UA UCx GC/Chlamydia/Trich ROBBIN US Kidneys Ureters Bladder EKG TX ordered: IVF, Toradol, Morphine Laboratory Tests 06/06/18 06/06/18 06/06/18 17:39 17:39 20:08 WBC 8.5 RBC 4.82 Hgb 14.3 Hct 42.5 MCV 88.2 MCH 29.7 MCHC 33.7 RDW 12.8 Plt Count 205 MPV 8.7 Absolute Neuts (auto) 5.5 Neutrophils % 65.1 Lymphocytes % 20.2 D Monocytes % 12.2 H Eosinophils % 1.9 D Basophils % 0.6 Nucleated RBC % 0 Sodium 140 Potassium 4.2 Chloride 103 Carbon Dioxide 30 Anion Gap 7 L BUN 14 Creatinine 1.1 Creat Clearance w eGFR > 60 Random Glucose 84 Calcium 9.2 Total Bilirubin 0.6 AST 17 ALT 21 Alkaline Phosphatase 56 Total Protein 6.7 Albumin 3.7 Urine Color Red Urine Appearance Cloudy Urine pH 6.0 Ur Specific [place] 1.009 Urine Protein 2+ H Urine Glucose (UA) Negative Urine Ketones 1+ H Urine Blood 3+ H Urine Nitrite Negative Urine Bilirubin Negative Urine Urobilinogen Negative Ur Leukocyte Esterase 2+ H Urine WBC (Auto) 688 Urine RBC (Auto) 476 Urine Bacteria Rare Reassessment: Patient states pain improved after 8 mg morphine IV. Bedside US showing moderate hydronephrosis to right kidney. UA with many RBC, more WBC than RBC, cannot r/o pyelonephritis. In the setting of increased right flank pain we cannot reliably r/o pyelonephritis. Zosyn IVPB is ordered. 06/06/18 21:07 Rectal temp is 98.6. The Pt is unsafe for discharge at this time. They require further hospital observation, workup, and treatment with IV abx. Microblog sent to [facility] for admission. Consult order placed to Dr. Evangelista. 06/06/18 21:57 Dr. Navarro has spoken with [facility] fundraising sale representative, in agreement patient admitted to Dr. Ansari. <Sonia Mejia - Last Filed: 06/07/18 21:28> *DC/Admit/Observation/Transfer - Discharge Dispostion Decision to Admit order: Yes <Sonia Mejia - Last Filed: 06/07/18 21:28> - Discharge Dispostion Decision to Admit order: Yes <Marion Navarro - Last Filed: 06/11/18 07:05> Diagnosis at time of Disposition: Kidney stone, Pyelonephritis, Intractable abdominal pain - Discharge Dispostion Condition at time of disposition: Guarded
[2018-06-06] MEDS ORDERED: KETOROLAC TROMETHAMINE 30 MG/1 ML VIAL IVPUSH ONE (17:09)
[2018-06-06] MEDS ORDERED: morphine CARPU-JECT 4 MG/1 ML DISP.SYRIN IVPUSH ONE ×2 (17:09→17:31)
[2018-06-06] MEDS ORDERED: morphine SULFATE 4 MG/ML VIAL ONE ×2 (17:19→17:46)
[2018-06-06] MEDS ORDERED: KETOROLAC TROMETHAMINE 60 MG/2 ML VIAL ONE (17:20)
[2018-06-06] MEDS ORDERED: KETOROLAC TROMETHAMINE 15 MG/ML VIAL ONE (17:22)
[2018-06-06 18:11] LABS: BASO % 0.6 % (0-2.0); EOS % 1.9 % (0-4.5); HEMATOCRIT 42.5 % (35.4-49); HEMOGLOBIN 14.3 GM/dL (11.7-16.9); LYMPH % 20.2 % (8-40); MCH 29.7 pg (25.7-33.7); MCHC 33.7 g/dl (32.0-35.9); MEAN CELL VOLUME 88.2 fl (80-96); MEAN PLT VOLUME 8.7 fl (7.5-11.1); MONO % 12.2 % (3.8-10.2); NEUT % 65.1 % (42.8-82.8); PLATELET COUNT 205 K/MM3 (134-434); RBC 4.82 M/mm3 (4.00-5.60); RDW 12.8 % (11.9-15.9); WHITE BLOOD COUNT 8.5 K/mm3 (4.0-10.0)
[2018-06-06 18:34] LABS: ALBUMIN 3.7 g/dl (3.4-5.0); ALK PHOS 56 U/L (45-117); ANION GAP 7 (8-16); BILIRUBIN,TOTAL 0.6 mg/dL (0.2-1.0); BLOOD UREA NITROGEN 14 mg/dL (7-18); CALCIUM 9.2 mg/dL (8.5-10.1); CHLORIDE 103 mmol/L (98-107); CO2 30 mmol/L (21-32); CREATININE 1.1 mg/dL (0.7-1.3); GLUCOSE,RANDOM 84 mg/dL (74-106); SGPT/ALT 21 U/L (12-78); SODIUM 140 mmol/L (136-145); TOT PROT 6.7 g/dl (6.4-8.2)
[2018-06-06 18:51] LABS: POTASSIUM 4.2 mmol/L (3.5-5.1)
[2018-06-06 18:52] LABS: SGOT/AST 17 U/L (15-37)
--- NOTE | 2018-06-06 19:15 | PDOC ---
Attending Attestation - HPI HPI: 06/06/18 19:18 Mr. Perfecto Gore is a 37 year old male with past medical history of kidney stones x2 and recent cystoscopy/right ureteroscopy with ureteral dilation/ urethral dilation/righ retrograde pyelogram/right ureteral stent placement by Dr. Evangelista on 06/03/2018 presents to the emergency department with R. abdominal and flank pain. The patient reports pain to the R. abdominal region with R. flank pain accompanied with hematuria. The patient reports he has an appointment with Dr. Evangelista tomorrow for a follow up. (+) Subjective fever, hematuria, R. abdominal pain. R. flank pain. - Physicial Exam PE: 06/06/18 19:19 Mild acute distress 2/2 pain, well appearing, moist mucus membranes, nl conjunctiva; neck supple, FROM. lungs clear, RRR, abdomen +right CVAT and right sided abdominal tenderness. No peritoneal signs., warm and well perfused. GALLEGOS x4 - Medical Decision Making 06/06/18 19:19 Documentation prepared by Chika Pond, acting as medical driver for Marion Navarro MD. <Chika Pond - Last Filed: 06/06/18 19:18> - Resident Resident Name: Sonia Mejia - ED Attending Attestation I have performed the following: I have examined & evaluated the patient, The case was reviewed & discussed with the resident, I agree w/resident's findings & plan, Exceptions are as noted - Medical Decision Making 06/06/18 19:12 A portion of this note was documented by scribe services under my direction. I have reviewed the details of the note, within reason, and agree with the documentation with the following case summary and management plan written by me. MDM: Bao 37 YOM with h/o kidney stones (admitted here to [facility] from 06/02-06/05 for 6+ mm right obstructing ureteral stone with grade 4/5 right hydroureteronephrosis) who p/w continued right flank pain since having a cystoscopy/right ureteroscopy with ureteral dilation/urethral dilation/right retrograde pyelogram/right ureteral stent placement wit Dr. Evangelista on 06/03/18. ddx. renal colic, stent displacement, ureterolithiasis, pyelonephritis/UTI. doubt appy or diverticulitis, no lower quad tenderness or peritoneal signs. labs reassuring. pain controlled with morphine, toradol and IVF, IV zosyn for suspected acute pyelo. UA with RBC and WBCs, with flank tenderness and recent ureteral stent placement, will treat as suspected infection. nontoxic/septic appearing, will treat broadly with recent manipulation POCUS renal exam performed, indication includes abdominal/flank pain. views obtained: bilateral kidneys in short and long axis, bladder. findings: evidence of right moderate hydronephrosis and ureteral stent in bladder. Impression: + ureteral stent seen in bladder and right moderate hydronephrosis. Vital signs reviewed, wnl. no fevers rectally, but subjective f/c per report. will obtain CT shira to eval for stent migration and stone complications/ infection. CT with stent in place, 3-4 mm ureteral stone, +mild to mod hydro. interval pelvic FF, otherwise as reported page out to Urology Dr. Alhaji Thomason who performed procedure. discussed case and plan. dispo: admit for complicated UTI with ureteral stent/acute pyelonephritis with recent manipulation, pain control, IV abx and medical management. 06/06/18 21:59 <Marion Navarro - Last Filed: 06/06/18 22:02>
[2018-06-06 20:36] LABS: URINE APPEARANCE CLOUDY; URINE BILIRUBIN NEGATIVE (<2.0 mg/dL); URINE COLOR RED; URINE GLUCOSE (UA) NEGATIVE (NEGATIVE); URINE KETONE 1+ (NEGATIVE); URINE NITRITE NEGATIVE (NEGATIVE); URINE UROBILINOGEN NEGATIVE mg/dL (0.2-1.0)
[2018-06-06 20:44] LABS: URINE LEUK ESTERASE 2+ (NEGATIVE); URINE PROTEIN 2+ (NEGATIVE)
[2018-06-06 20:48] LABS: URINE BACTERIA RARE /hpf (NONE SEEN)
[2018-06-06] MEDS ORDERED: PIPERACILLIN/TAZOB 4.5 GM 4.5 GM in DEXTROSE 5%-WATER 100 ML IVPB ONE (20:52)
--- NOTE | 2018-06-06 21:10 | PN ---
Teaching Attending Note Name of Resident: Jyoti Juarez ATTENDING PHYSICIAN STATEMENT I saw and evaluated the patient. I reviewed the resident's note and discussed the case with the resident. I agree with the resident's findings and plan as documented. SUBJECTIVE: Patient is a 37 year old man with history of kidney stones (admitted here to [facility] from 06/02-06/05/18 for 6+ mm right obstructing ureteral stone with grade 4/5 right hydroureteronephrosis) who p/w continued right flank pain since having a cystoscopy/right ureteroscopy with ureteral dilation/urethral dilation/right retrograde pyelogram/right ureteral stent placement with Dr. Evangelista on . He additionally notes only being able to urinate a small amount at a time, and passing blood clots. His pain level is currently at 2/10 but it is constant and nagging, in the right flank radiating to the RUQ. He expresses frustration at the continued pain and states he believes something must have gone wrong with the procedure. He notes subjective fever, but denies chills, n/v/d/c, burning on urination, testicular pain or swelling, or other symptoms. He has been taking ibuprofen for pain without relief. First episode of kidney stone disease was about 20 years ago. Has family history of kidney stone disease. Has never had a comprehensive workup to search for risk factor for kidney stones - due to lack of ?health insurance. OBJECTIVE: Alert and in no acute distress Vital Signs Period Temp Pulse Resp BP Sys/[place] Pulse Ox Last 24 Hr 98.6 F 74 16 153/103 100 HEENT: No Jaundice, eye redness or discharge, PERRLA, EOMI. Normocephalic, atraumatic. External ears are normal and hearing is grossly intact. No nasal discharge. Neck: Supple, nontender. No palpable adenopathy or thyromegaly. No JVD Chest: Good effort. Clear to auscultation and percussion. Heart: Regular. No S3, rub or murmur Abdomen: Not distended, soft, right CVAT and no HSM. No rebound or guarding. Normoactive bowel sounds. Ext: Peripheral pulses intact. No leg edema. Skin: Warm and dry. No petechiae, rash or ecchymosis. Neuro: Alert. Oriented x3. CN 2-12 grossly intact. Sensation grossly intact in all four extremities and DTR are symmetric. Current Medications Generic Name Dose Route Start Last Admin Trade Name Freq PRN Reason Stop Dose Admin Piperacillin Sod/Tazobactam 100 mls @ 200 mls/hr 06/06/18 20:52 Sod 4.5 gm/ Dextrose IVPB 06/06/18 21:21 ONCE ONE Protocol Home Medications Medication Instructions Recorded NK [No Known Home Medication] 06/02/18 Abnormal Lab Results 06/06/18 06/06/18 06/06/18 17:39 17:39 20:08 Monocytes % 12.2 H Anion Gap 7 L Urine Protein 2+ H Urine Ketones 1+ H Urine Blood 3+ H Ur Leukocyte Esterase 2+ H ASSESSMENT AND PLAN: 1. Pyelonephritis - CT shows mild to moderate right hydronephrosis and bilateral kidney stones. Treat with IV Zosyn pending urine culture report. IV NS as 100 ml/hour and consult urology. Consult nephrology - needs comprehensive work to search for risk factor for stone disease - may find something that can be treated thus preventing recurrent stone formation. Incidental finding of L5- S1 disc herniation - will refer to neurosurgery as outpatient. 2. DVT prophylaxis - Heparin 5000u sq tid. 3. Advance directives - Full code
--- NOTE | 2018-06-06 22:28 | HP ---
CHIEF COMPLAINT:Right abdominal pain PCP: HISTORY OF PRESENT ILLNESS: Patient is a 37 year old male with past medical history of ureterolithiasis s/p cystoscopy/R ureteroscopy with R ureteral stent placement (06/03/18), presented with right abdominal pain, radiating to the flank area. Since discharge from surgery 4 days ago, patient has been having persistent right abdominal/flank pain, mildly relieved by Ibuprofen accompanied by hematuria and an episode of passing blood clots. Today, he presents with severe, 10/10, right abdominal pain and flank pain, accompanied by subjective fever and chills. Patient denies chest pain, SOB, palpitations, dysuria, nausea, vomiting, diarrhea, constipation. ER course was notable for: (1)Urinalysis: protein 2+, ketones 1+, blood 3+, leukocyte esterase 2+ (2)Renal U/S: ureteral stent in bladder, R moderate hydronephrosis (3)CT shira: mild-mod R hydronephrosis, 3-4mm ureteral calculus, small free fluid w/in rectovesical space of lower pelvis (4)IV Zosyn given (5) IV morphine given -- pain reduced to 2/10 Recent Travel:Denies any recent travel PAST MEDICAL HISTORY: Nephrolithiasis (x2, first diagnosed 20 years ago) PAST SURGICAL HISTORY: R ureteral stent placement (06/03/18) Social History: Smoking:nonsmoker Alcohol:no ETOH drinker Drugs: denies illicit drug use Family History: Allergies No Known Allergies Allergy (Verified 06/06/18 16:00) HOME MEDICATIONS: Home Medications Medication Instructions Recorded NK [No Known Home Medication] 06/02/18 REVIEW OF SYSTEMS CONSTITUTIONAL:+fever, chills Absent: diaphoresis, generalized weakness, malaise, loss of appetite, weight change HEENT: Absent: rhinorrhea, nasal congestion, throat pain, throat swelling, difficulty swallowing, mouth swelling, ear pain, eye pain, visual changes CARDIOVASCULAR: Absent: chest pain, syncope, palpitations, irregular heart rate, lightheadedness , peripheral edema RESPIRATORY: Absent: cough, shortness of breath, dyspnea with exertion, orthopnea, wheezing, stridor, hemoptysis GASTROINTESTINAL:+abdominal pain Absent: abdominal distension, nausea, vomiting, diarrhea, constipation, melena, hematochezia GENITOURINARY: +hematuria, flank pain Absent: dysuria, frequency, urgency, hesitancy, genital pain MUSCULOSKELETAL: Absent: myalgia, arthralgia, joint swelling, back pain, neck pain SKIN: Absent: rash, itching, pallor HEMATOLOGIC/IMMUNOLOGIC: Absent: easy bleeding, easy bruising, lymphadenopathy, frequent infections ENDOCRINE: Absent: unexplained weight gain, unexplained weight loss, heat intolerance, cold intolerance NEUROLOGIC: Absent: headache, focal weakness or paresthesias, dizziness, unsteady gait, seizure, mental status changes, bladder or bowel incontinence PSYCHIATRIC: Absent: anxiety, depression, suicidal or homicidal ideation, hallucinations. PHYSICAL EXAMINATION Vital Signs - 24 hr 06/06/18 16:01 Temperature 98.6 F Pulse Rate 74 Respiratory 16 Rate Blood Pressure 153/103 O2 Sat by Pulse 100 Oximetry (%) GENERAL: Awake, alert, and fully oriented, in no acute distress. HEAD: Normal with no signs of trauma. EYES: ALEENA, EOMI, pink palpebral conjunctivae, anicteric sclerae EARS, NOSE, THROAT: Ears normal, nares patent, oropharynx clear without exudates. Moist mucous membranes. NECK: Normal range of motion, supple without lymphadenopathy, JVD, or masses. LUNGS: Breath sounds equal, clear to auscultation bilaterally. HEART: Regular rate and rhythm, normal S1 and S2 without murmur, rub or gallop. ABDOMEN: +RUQ/RLQ tenderness, normoactive bowel sounds MUSCULOSKELETAL: Normal range of motion at all joints. No bony deformities or tenderness. + CVA tenderness, right. UPPER EXTREMITIES: 2+ pulses, warm, well-perfused. No cyanosis. No clubbing. No peripheral edema. LOWER EXTREMITIES: 2+ pulses, warm, well-perfused. No calf tenderness. No peripheral edema. NEUROLOGICAL: Cranial nerves II-XII intact. Normal speech. Normal gait. PSYCHIATRIC: Cooperative. Good eye contact. Appropriate mood and affect. SKIN: Warm, dry, normal turgor, no rashes or lesions noted, normal capillary refill. Laboratory Results - last 24 hr 06/06/18 06/06/18 06/06/18 17:39 17:39 20:08 WBC 8.5 RBC 4.82 Hgb 14.3 Hct 42.5 MCV 88.2 MCH 29.7 MCHC 33.7 RDW 12.8 Plt Count 205 MPV 8.7 Absolute Neuts (auto) 5.5 Neutrophils % 65.1 Lymphocytes % 20.2 D Monocytes % 12.2 H Eosinophils % 1.9 D Basophils % 0.6 Nucleated RBC % 0 Sodium 140 Potassium 4.2 Chloride 103 Carbon Dioxide 30 Anion Gap 7 L BUN 14 Creatinine 1.1 Creat Clearance w eGFR > 60 Random Glucose 84 Calcium 9.2 Total Bilirubin 0.6 AST 17 ALT 21 Alkaline Phosphatase 56 Total Protein 6.7 Albumin 3.7 Urine Color Red Urine Appearance Cloudy Urine pH 6.0 Ur Specific [place] 1.009 Urine Protein 2+ H Urine Glucose (UA) Negative Urine Ketones 1+ H Urine Blood 3+ H Urine Nitrite Negative Urine Bilirubin Negative Urine Urobilinogen Negative Ur Leukocyte Esterase 2+ H Urine WBC (Auto) 688 Urine RBC (Auto) 476 Urine Bacteria Rare ASSESSMENT/PLAN: Patient is a 37 year old male with past medical history of ureterolithiasis s/p cystoscopy/R ureteroscopy with R ureteral stent placement (06/03/18), presented with right abdominal pain, radiating to the flank area. #Pyelonephritis: Patient is s/p ureteral stent placement -Urinalysis showed Blood 3+, Leukocyte esterase 3+ -CT scan showed mild-mod R hydronephrosis, small free fluid w/in rectovesical space of lower pelvis, b/l nephrolithiasis -Urine culture pending. -Will start with IV Zosyn pending culture. -IV fluids. -Dr. Villalta consult appreciated. #Incidental finding of L5-S1 disc herniation on CT: Patient c/o right hand numbness -Will refer to neuro as outpatient for further evaluation. #FEN -IV NS (0.9%) at 100ml/hr -Electrolytes WNL, routine BMP monitoring -Regular diet #Prophylaxis -Heparin 5000 units sq TID #Disposition -admit to med-surg -full code Visit type - Emergency Visit Emergency Visit: Yes ED Registration Date: 06/06/18 Care time: The patient presented to the Emergency Department on the above date and was hospitalized for further evaluation of their emergent condition. - New Patient This patient is new to me today: Yes Date on this admission: 06/07/18 - Critical Care Critical Care patient: No Hospitalist Screening - Colonoscopy Questionnaire Colonoscopy Questionnaire: Colonoscopy Questionnaire - Patient: 50 - 75 years old and never had a screening colonoscopy: Unknown History of colon or rectal polyps, or CA: Unknown History of IBD, Crohn's disease or UC: Unknown History of abdominal radiation therapy as a child: Unknown - Relative: 1 with colon or rectal CA, or polyps at age 60 or younger: Unknown Colon or rectal CA diagnosed at age 45 or younger: Unknown Multiple relatives with colon or rectal CA: Unknown - Outcome: Screening Result: Negative Screen
[2018-06-07 08:15] LABS: HEMATOCRIT 38.8 % (35.4-49); HEMOGLOBIN 13.6 GM/dL (11.7-16.9); MCH 30.5 pg (25.7-33.7); MCHC 35.1 g/dl (32.0-35.9); MEAN CELL VOLUME 87.1 fl (80-96); PLATELET COUNT 184 K/MM3 (134-434); RBC 4.46 M/mm3 (4.00-5.60); RDW 12.7 % (11.9-15.9); WHITE BLOOD COUNT 6.4 K/mm3 (4.0-10.0)
[2018-06-07 08:33] LABS: ANION GAP 7 (8-16); BLOOD UREA NITROGEN 13 mg/dL (7-18); CALCIUM 8.8 mg/dL (8.5-10.1); CHLORIDE 103 mmol/L (98-107); CO2 31 mmol/L (21-32); GLUCOSE,RANDOM 79 mg/dL (74-106); PHOSPHOROUS 4.2 mg/dL (2.5-4.9); POTASSIUM 3.7 mmol/L (3.5-5.1); SODIUM 141 mmol/L (136-145)
--- NOTE | 2018-06-07 08:49 | CONSULT ---
Consult - text type - Consultation Consultation Note: CC: right renal colic/uti s/p stent hpi: Patient is s/p a right ureteral stent who presents with right colic. The patient denies nausea, vomiting, fever, chills or significant dysuria. CT scan shows stent in good position with improvement of perinephric stranding since last CT scan. PE VSS; afeb abd- mild right CVAT labs UA: nitrite positive urine WBC WNL creatinine WNL imp right hydro s/p stent uncomplicated uti plan patient is urologically cleared for discharge on Bactrim DS bid for seven days will follow-up as outpatient
[2018-06-07] MEDS ORDERED: SULFAMETHOXAZOLE/TRIMETHOPRIM 800MG/160MG D.S. TABLET PO SCH (10:00)
[2018-06-07 12:01] VITALS: BP 142/78; PULSE 63; TEMP 98.7
--- NOTE | 2018-06-07 13:43 | PN ---
Teaching Attending Note Name of Resident: Ted Mchugh ATTENDING PHYSICIAN STATEMENT I saw and evaluated the patient. I reviewed the resident's note and discussed the case with the resident. I agree with the resident's findings and plan as documented with exceptions below. SUBJECTIVE: Patient seen and examined. doing well, pain improved, no fevers, chills or urinary symptoms, eager to go home. OBJECTIVE: Vital Signs Period Temp Pulse Resp BP Sys/[place] Pulse Ox Last 24 Hr 97.6 F-98.7 F 50-74 16-18 134-153/78-103 98-100 Intake & Output 06/04/18 06/05/18 06/06/18 06/07/18 23:59 23:59 23:59 23:59 Intake Total 80 Balance 80 Weight 190 lb 190 lb General: standing in hallway no acute distress Abdomen:soft, mild right sided tenderness, mild right CVA tenderness Home Medications Medication Instructions Recorded Sulfamethoxazole/Trimethoprim 1 each PO BID 7 Days #14 tablet 06/07/18 [Bactrim DS -] Laboratory Results - last 24 hr 06/06/18 06/06/18 06/06/18 17:39 17:39 20:08 WBC 8.5 RBC 4.82 Hgb 14.3 Hct 42.5 MCV 88.2 MCH 29.7 MCHC 33.7 RDW 12.8 Plt Count 205 MPV 8.7 Absolute Neuts (auto) 5.5 Neutrophils % 65.1 Lymphocytes % 20.2 D Monocytes % 12.2 H Eosinophils % 1.9 D Basophils % 0.6 Nucleated RBC % 0 Sodium 140 Potassium 4.2 Chloride 103 Carbon Dioxide 30 Anion Gap 7 L BUN 14 Creatinine 1.1 Creat Clearance w eGFR > 60 Random Glucose 84 Calcium 9.2 Phosphorus Magnesium Total Bilirubin 0.6 AST 17 ALT 21 Alkaline Phosphatase 56 Total Protein 6.7 Albumin 3.7 Urine Color Red Urine Appearance Cloudy Urine pH 6.0 Ur Specific [place] 1.009 Urine Protein 2+ H Urine Glucose (UA) Negative Urine Ketones 1+ H Urine Blood 3+ H Urine Nitrite Negative Urine Bilirubin Negative Urine Urobilinogen Negative Ur Leukocyte Esterase 2+ H Urine WBC (Auto) 688 Urine RBC (Auto) 476 Urine Bacteria Rare 06/07/18 06/07/18 07:26 07:26 WBC 6.4 RBC 4.46 Hgb 13.6 Hct 38.8 MCV 87.1 MCH 30.5 MCHC 35.1 RDW 12.7 Plt Count 184 MPV 9.0 Absolute Neuts (auto) Neutrophils % Lymphocytes % Monocytes % Eosinophils % Basophils % Nucleated RBC % Sodium 141 Potassium 3.7 Chloride 103 Carbon Dioxide 31 Anion Gap 7 L BUN 13 Creatinine 1.0 Creat Clearance w eGFR > 60 Random Glucose 79 Calcium 8.8 Phosphorus 4.2 Magnesium 2.0 Total Bilirubin AST ALT Alkaline Phosphatase Total Protein Albumin Urine Color Urine Appearance Urine pH Ur Specific [place] Urine Protein Urine Glucose (UA) Urine Ketones Urine Blood Urine Nitrite Urine Bilirubin Urine Urobilinogen Ur Leukocyte Esterase Urine WBC (Auto) Urine RBC (Auto) Urine Bacteria ASSESSMENT AND PLAN: 37 yof with PMhx of nephrolothiasis s/p recent stent placement admitted with right flank pain, an episode of hematuria. -Lower complicated UTI -Nephrolithiasis s/p right nephroureteral stent placement Plan: Doing well, Urology input noted. Bactrim for 7 days, urine cultures pending, Discussed with patient, advised follow up with Dr. Alhaji Thomason on Sunday and have the office follow up on urine cultures. NOtify if new intervention needed pending urine cultures. Plan discussed with patient in detail, all questions answered. D/c home today.
--- NOTE | 2018-06-07 20:14 | DS ---
Physical Exam: SUBJECTIVE: Patient seen and examined at bedside. Pt is comfortable and feels that pain has improved with the antibiotics. Eager to go home. Denies any fever , chills, cp, n/v/d OBJECTIVE: Vital Signs Period Temp Pulse Resp BP Sys/[place] Pulse Ox Last 24 Hr 97.6 F-98.7 F 50-63 17-18 134-142/78-88 98-99 PHYSICAL EXAM GENERAL: Awake, alert, and fully oriented, NAD. HEENT: NCAT. sclera anicteric, conjunctiva clear. No lid lag. oropharynx clear without exudates. MMM. NECK: Normal ROM, supple without lymphadenopathy, JVD, or masses. LUNGS: CTAB. No wheezes, and no crackles. No accessory muscle use. HEART: RRR, normal S1 and S2 without murmur, rub or gallop. ABDOMEN: mild TTP RLQ/RUQ Soft, ND +BS no guarding, no rebound, no masses. No hepatomegaly or splenomegaly. MUSCULOSKELETAL: Normal range of motion at all joints. No bony deformities or tenderness. R CVA tenderness. UPPER EXTREMITIES: 2+ pulses, warm, well-perfused. No cyanosis. No clubbing. No peripheral edema. LOWER EXTREMITIES: 2+ pulses, warm, well-perfused. No calf tenderness. No peripheral edema. NEUROLOGICAL: Cranial nerves II-XII intact. Normal speech. SKIN: Warm, dry, normal turgor, no rashes or lesions noted, normal capillary refill. LABS Laboratory Results - last 24 hr 06/06/18 06/07/18 06/07/18 20:08 07:26 07:26 WBC 6.4 RBC 4.46 Hgb 13.6 Hct 38.8 MCV 87.1 MCH 30.5 MCHC 35.1 RDW 12.7 Plt Count 184 MPV 9.0 Sodium 141 Potassium 3.7 Chloride 103 Carbon Dioxide 31 Anion Gap 7 L BUN 13 Creatinine 1.0 Creat Clearance w eGFR > 60 Random Glucose 79 Calcium 8.8 Phosphorus 4.2 Magnesium 2.0 Urine Color Red Urine Appearance Cloudy Urine pH 6.0 Ur Specific [place] 1.009 Urine Protein 2+ H Urine Glucose (UA) Negative Urine Ketones 1+ H Urine Blood 3+ H Urine Nitrite Negative Urine Bilirubin Negative Urine Urobilinogen Negative Ur Leukocyte Esterase 2+ H Urine WBC (Auto) 688 Urine RBC (Auto) 476 Urine Bacteria Rare HOSPITAL COURSE: Date of Admission:06/06/18 Date of Discharge: 06/07/18 37 year old male with PMH of ureterolithiasis s/p cystoscopy/R ureteroscopy with R ureteral stent placement (06/03/18), presented with right abdominal pain , radiating to the flank area associated w/ hematuria and CVA tenderness Pt was admitted for Pyelonephritis. Pt was afebrile w/o leukocytosis but was found w/ positive UA for blood and UTI, and CT scan showing R hydronephrosis w/ stones in the ureter. Urine cultures were pending. Pt was tx empirically w/ IV zosyn and fluids. Urology was consulted and cleared him for discharge on Bactrim DS bid for seven days. Pain was controlled with Tylenol and Morphine. He was counseled on the importance of staying well hydrated and taking the antibiotic tx. Patient was discharged same day with follow up scheduled in Dr. Evangelista's office where pt can f/u on urine cx results. Minutes to complete discharge: 35 Discharge Summary Reason For Visit: HYDEONEPHROSIS CONCURRENT WITH AND DUE TO CALCULI Condition: Guarded - Instructions Diet, Activity, Other Instructions: You were seen in the ER for a kidney stone that is trying to pass. We did laboratory tests on your urine and found blood in the urine, which is common with kidney stones. We did not see signs of an infection in the urine or on your vital signs. We gave you medications and IV fluids which helped your symptoms. it technical support specialist and take your prescriptions that we are sending electronically to your pharmacy. We are giving you referral information for a urologist in case you need a new one. Please take over the counter pain medications for pain, following the instructions on the medication label. Please follow up with your regular doctor in 1-3 days. Please follow up with dr Vallejo on Sunday call his office and schedule an appointment Your urine culture is pending. Please have Dr. Trejo follow up on the results on Sunday. You were started on Antibiotic Bactrim. Take it for one week as directed. Please notify your doctor or come to the ED for any decreased urination, rash or new concerns. Please drink plenty of fluids while on these medications. Please come back to the ER at any time, 24 hours a day, for any new or worsening symptoms, like worsening pain unrelieved with medications, fever, inability to urinate, burning on urination, testicular pain or swelling, or other symptoms. If you are having severe or life threatening symptoms, or symptoms that make it unsafe to drive or have someone drive you, please call 911. Disposition: HOME - Home Medications Comprehensive Discharge Medication List: Ambulatory Orders Sulfamethoxazole/Trimethoprim [Bactrim DS -] 1 each PO BID 7 Days #14 tablet 01/20 This patient is new to me today: Yes Date on this admission: 06/08/18 Emergency Visit: Yes ED Registration Date: 06/06/18 Care time: The patient presented to the Emergency Department on the above date and was hospitalized for further evaluation of their emergent condition. Critical Care patient: No - Discharge Referral Referred to [facility] No
== END 2018-06-07 12:30 | disposition home or self-care (01) | DRG 463 ==
LOC: JER 15:47 → JERBED 20:58 → J6S 06-07 02:10
PROVIDERS: ADMIT Internal Medicine; ATTEND Hospitalist
DX: N13.6 Pyonephrosis (principal); M51.27 Other intervertebral disc displacement, lumbosacral region
CPT/HCPCS: 36415; 74176; 80048; 80053; 81003; 81015; 83735; 84100; 85025; 85027; 87086; 99284-25; J0131